=== PATIENT | male | born 1975 | race Caucasian/White ===

== ENCOUNTER 2025-03-04 21:16 | Emergency (ER) | payer BC ==
[2025-03-04] MEDS: Bacitracin Oint 1 GM U/D Packet TOP ONE (22:11)
== END 2025-03-04 22:17 | disposition home or self-care (01) ==
LOC: JP.ED 21:16
DX: S60.453A Superficial foreign body of left middle finger, initial encounter (principal); W45.8XXA Other foreign body or object entering through skin, initial encounter
CPT/HCPCS: 99283; J2003